=== PATIENT | female | born 1940 | race Caucasian/White ===

== ENCOUNTER 2017-09-21 05:45 | Inpatient (IN) | payer OTHER ==
[~2017-09-21] VITALS: Ht 157.5 cm; Wt 83.2 kg
[2017-09-21 06:48] LABS: BASOPHIL % 0.4 % (0-2); PLATELET COUNT 204 x10^3mcL (130-400)
[2017-09-21 07:15] LABS: CALCIUM 8.7 mg/dL (8.5-10.1); CARBON DIOXIDE 20.4 mmol/L (21-32); CHLORIDE SERUM 107 mmol/L (98-107); CREATININE SERUM 1.1 mg/dL (0.6-1.0); GLUCOSE SERUM 109 mg/dL (74-106); POTASSIUM SERUM 4.4 mmol/L (3.5-5.1); SODIUM SERUM 139 mmol/L (136-145)
[2017-09-21 07:16] LABS: FREE T4 0.94 ng/dL (0.76-1.46); FREE THYROXINE INDEX 1.8 ug/dL (1.4-4.5); T4(THYROXINE) 5.7 ug/dL (4.7-13.3)
[2017-09-21 07:20] LABS: ALBUMIN 3.6 g/dL (3.4-5.0); ALKALINE PHOSPHATASE 113 U/L (46-116); ALT/SGPT 32 U/L (14-59); AST/SGOT 22 U/L (15-37); BILIRUBIN TOTAL 0.2 mg/dL (0.20-1.00); CHOLESTEROL 151 mg/dL (<200); HDL CHOLESTEROL 51 mg/dL (40-60); LIPASE 112 IU/L (73-393); TOTAL PROTEIN, SERUM 7.3 g/dL (6.4-8.2); TRIGLYCERIDES 176 mg/dL (<150)
[2017-09-21 07:46] LABS: RED CELL DISTRIBUTION WIDTH 15.1 % (11.5-14.5)
[2017-09-21 08:49] LABS: microscopic required? NO
[2017-09-21] MEDS ORDERED: LISINOPRIL-HYDR1 TA3 PO (09:04)
[2017-09-21] MEDS ORDERED: MYS50 PO (09:06)
[2017-09-21] MEDS ORDERED: METOPROLOL SUC100 M2 PO (09:08)
[2017-09-21] MEDS ORDERED: SIMVASTATIN10 M1 PO (09:08)
[2017-09-21] MEDS ORDERED: CLOPIDOGREL75 M1 PO (09:09)
[2017-09-21] MEDS ORDERED: ASPIR 8181 MG PO (09:09)
[2017-09-21] MEDS ORDERED: TEMAZEPAM15 MG PO (09:10)
[2017-09-21] MEDS ORDERED: ADV100/50 INH (09:10)
[2017-09-21] MEDS ORDERED: ESCITALOPRAM10 M1 PO (09:11)
[2017-09-21] MEDS ORDERED: LOPERAMIDE HCL2 MG PO (09:11)
[2017-09-21 09:17] LABS: urine erythrocyte NEGATIVE (NEGATIVE)
[2017-09-21 09:43] LABS: MAGNESIUM 1.9 mg/dL (1.8-2.4); PHOSPHOROUS 3.7 mg/dL (2.5-4.9)
[2017-09-21 09:59] LABS: AMPHETAMINE QUAL UR NONE DETECTED (NEG <=1000)
[2017-09-21 11:08] VITALS: BP 120/70
[2017-09-21 14:12] VITALS: BP 120/70
[2017-09-21 16:21] VITALS: BP 148/51
[2017-09-21 20:47] VITALS: BP 130/55
[2017-09-22 06:12] VITALS: BP 132/48
[2017-09-22 06:19] LABS: BASOPHIL % 0.5 % (0-2); PLATELET COUNT 180 x10^3mcL (130-400)
[2017-09-22 06:21] LABS: CALCIUM 8.1 mg/dL (8.5-10.1); CARBON DIOXIDE 21.1 mmol/L (21-32); CHLORIDE SERUM 108 mmol/L (98-107); CREATININE SERUM 0.8 mg/dL (0.6-1.0); GLUCOSE SERUM 92 mg/dL (74-106); POTASSIUM SERUM 4.2 mmol/L (3.5-5.1); SODIUM SERUM 140 mmol/L (136-145)
[2017-09-22 07:29] LABS: RED CELL DISTRIBUTION WIDTH 15.1 % (11.5-14.5)
[2017-09-22 09:09] VITALS: BP 141/52
[2017-09-22 09:23] LABS: T3 TOTAL 0.99 ng/mL
[2017-09-22 12:37] VITALS: BP 150/53
[2017-09-22 12:47] LABS: RED BLOOD CELLS 3.18 M/mm3 (4.10-5.10)
[2017-09-22 12:48] LABS: IRON 65 ug/dL (50-170)
[2017-09-22 13:04] LABS: TOTAL IRON BINDING CAPACITY 373 ug/dL (250-450)
[2017-09-22 17:32] VITALS: BP 149/66
[2017-09-22 21:21] VITALS: BP 149/65
[2017-09-23 06:02] VITALS: BP 151/59
[2017-09-23 08:20] VITALS: BP 152/59
[2017-09-23 17:35] VITALS: BP 164/72
[2017-09-23 20:01] LABS: BASOPHIL % 0.8 % (0-2); PLATELET COUNT 185 x10^3mcL (130-400); RED CELL DISTRIBUTION WIDTH 14.3 % (11.5-14.5)
[2017-09-23 20:48] VITALS: BP 127/51
[2017-09-24 05:57] VITALS: BP 106/44
[2017-09-24 06:36] LABS: BASOPHIL % 0.3 % (0-2); PLATELET COUNT 182 x10^3mcL (130-400); RED CELL DISTRIBUTION WIDTH 14.5 % (11.5-14.5)
[2017-09-24 06:58] LABS: CALCIUM 8.2 mg/dL (8.5-10.1); CARBON DIOXIDE 24.2 mmol/L (21-32); CHLORIDE SERUM 104 mmol/L (98-107); CREATININE SERUM 1.3 mg/dL (0.6-1.0); GLUCOSE SERUM 96 mg/dL (74-106); MAGNESIUM 1.7 mg/dL (1.8-2.4); PHOSPHOROUS 3.5 mg/dL (2.5-4.9); POTASSIUM SERUM 4.1 mmol/L (3.5-5.1); SODIUM SERUM 137 mmol/L (136-145)
[2017-09-24 08:36] VITALS: BP 109/52
[2017-09-24 09:07] VITALS: BP 109/52
[2017-09-24 12:53] VITALS: BP 116/51
[2017-09-24 17:45] VITALS: BP 129/50
[2017-09-24 21:51] VITALS: BP 132/46
[2017-09-24 22:42] LABS: UA SPECIFIC GRAVITY 1.015 (1.005-1.035); microscopic required? YES; urine erythrocyte 3+ (NEGATIVE)
[2017-09-25 06:16] VITALS: BP 145/72
[2017-09-25 06:58] LABS: BASOPHIL % 0.4 % (0-2); PLATELET COUNT 187 x10^3mcL (130-400)
[2017-09-25 06:59] LABS: RED CELL DISTRIBUTION WIDTH 14.8 % (11.5-14.5)
[2017-09-25 07:08] LABS: CALCIUM 8.1 mg/dL (8.5-10.1); CARBON DIOXIDE 21.1 mmol/L (21-32); CHLORIDE SERUM 107 mmol/L (98-107); CREATININE SERUM 1.1 mg/dL (0.6-1.0); GLUCOSE SERUM 104 mg/dL (74-106); POTASSIUM SERUM 3.9 mmol/L (3.5-5.1); SODIUM SERUM 140 mmol/L (136-145)
[2017-09-25 09:16] VITALS: BP 118/50
[2017-09-25 12:18] VITALS: BP 145/45
[2017-09-25 16:40] VITALS: BP 130/56
[2017-09-25 20:58] VITALS: BP 121/49
[2017-09-26 05:14] VITALS: BP 125/44
[2017-09-26 06:30] LABS: BASOPHIL % 0.4 % (0-2); PLATELET COUNT 177 x10^3mcL (130-400)
[2017-09-26 06:37] LABS: CALCIUM 8.1 mg/dL (8.5-10.1); CARBON DIOXIDE 19.2 mmol/L (21-32); CHLORIDE SERUM 106 mmol/L (98-107); CREATININE SERUM 1.2 mg/dL (0.6-1.0); GLUCOSE SERUM 121 mg/dL (74-106); POTASSIUM SERUM 3.8 mmol/L (3.5-5.1); SODIUM SERUM 137 mmol/L (136-145)
[2017-09-26 07:00] LABS: RED CELL DISTRIBUTION WIDTH 15.1 % (11.5-14.5)
[2017-09-26 10:02] VITALS: BP 83/31
[2017-09-26 14:03] VITALS: BP 116/89
[2017-09-26 18:11] VITALS: BP 103/44
[2017-09-26 20:42] VITALS: BP 103/54
[2017-09-27 04:42] VITALS: BP 93/53
[2017-09-27 08:00] VITALS: BP 109/49
[2017-09-27 09:50] LABS: PLATELET COUNT 207 x10^3mcL (130-400)
[2017-09-27 09:53] LABS: CALCIUM 8.7 mg/dL (8.5-10.1); CARBON DIOXIDE 11.1 mmol/L (21-32); CHLORIDE SERUM 105 mmol/L (98-107); CREATININE SERUM 2.8 mg/dL (0.6-1.0); GLUCOSE SERUM 142 mg/dL (74-106); POTASSIUM SERUM 4.4 mmol/L (3.5-5.1); RED CELL DISTRIBUTION WIDTH 15.4 % (11.5-14.5); SODIUM SERUM 134 mmol/L (136-145)
[2017-09-27 11:14] LABS: BAND NEUTROPHIL 8 % (0-10); BASOPHIL 0 % (0-2); MONOCYTE 9 % (0-7); SEGMENTED NEUTROPHILS 76 % (37-75)
[2017-09-27 11:15] LABS: PLATELET MORPHOLOGY PLATELETS NORMAL
[2017-09-27 13:21] VITALS: BP 106/83
[2017-09-27 14:23] LABS: PLATELET COUNT 197 x10^3mcL (130-400)
[2017-09-27 14:25] LABS: RED CELL DISTRIBUTION WIDTH 15.4 % (11.5-14.5)
[2017-09-27 14:55] LABS: MONOCYTE 5 % (0-7); SEGMENTED NEUTROPHILS 93 % (37-75)
[2017-09-27 14:56] LABS: BAND NEUTROPHIL 2 % (0-10); BASOPHIL 0 % (0-2); rbc morphology (normal/abnorm) ABNORMAL (NORMAL)
[2017-09-27 14:57] LABS: PLATELET MORPHOLOGY PLATELETS NORMAL
[2017-09-27 16:00] VITALS: BP 84/67
[2017-09-27 19:49] VITALS: BP 117/52
[2017-09-27 20:27] LABS: CALCIUM 8.5 mg/dL (8.5-10.1); CARBON DIOXIDE 13.4 mmol/L (21-32); CHLORIDE SERUM 106 mmol/L (98-107); CREATININE SERUM 2.7 mg/dL (0.6-1.0); GLUCOSE SERUM 140 mg/dL (74-106); POTASSIUM SERUM 4.2 mmol/L (3.5-5.1); SODIUM SERUM 135 mmol/L (136-145)
[2017-09-27 23:30] VITALS: BP 144/68
[2017-09-28 03:29] VITALS: BP 103/47
[2017-09-28 05:30] LABS: BASOPHIL % 0.1 % (0-2); PLATELET COUNT 200 x10^3mcL (130-400)
[2017-09-28 05:34] LABS: RED CELL DISTRIBUTION WIDTH 15.5 % (11.5-14.5)
[2017-09-28 05:44] LABS: CALCIUM 8.6 mg/dL (8.5-10.1); CARBON DIOXIDE 13.8 mmol/L (21-32); CHLORIDE SERUM 109 mmol/L (98-107); CREATININE SERUM 2.6 mg/dL (0.6-1.0); GLUCOSE SERUM 115 mg/dL (74-106); MAGNESIUM 2.3 mg/dL (1.8-2.4); PHOSPHOROUS 5.7 mg/dL (2.5-4.9); POTASSIUM SERUM 4.3 mmol/L (3.5-5.1); SODIUM SERUM 138 mmol/L (136-145)
[2017-09-28 07:45] VITALS: BP 67/45; BP 84/45
[2017-09-28 11:50] VITALS: BP 128/59
[2017-09-28 15:10] VITALS: BP 119/85
[2017-09-28 17:44] LABS: CALCIUM 8.1 mg/dL (8.5-10.1); CARBON DIOXIDE 15.4 mmol/L (21-32); CHLORIDE SERUM 110 mmol/L (98-107); CREATININE SERUM 2.1 mg/dL (0.6-1.0); GLUCOSE SERUM 155 mg/dL (74-106); PLATELET COUNT 220 x10^3mcL (130-400); POTASSIUM SERUM 3.5 mmol/L (3.5-5.1); SODIUM SERUM 138 mmol/L (136-145)
[2017-09-28 17:50] LABS: BASOPHIL % 0.2 % (0-2)
[2017-09-28 17:56] LABS: RED CELL DISTRIBUTION WIDTH 15.4 % (11.5-14.5)
[2017-09-28 20:03] VITALS: BP 84/42
[2017-09-28 22:07] LABS: CALCIUM 7.8 mg/dL (8.5-10.1); CARBON DIOXIDE 16.9 mmol/L (21-32); CHLORIDE SERUM 110 mmol/L (98-107); GLUCOSE SERUM 136 mg/dL (74-106); POTASSIUM SERUM 3.3 mmol/L (3.5-5.1); SODIUM SERUM 140 mmol/L (136-145)
[2017-09-28 22:40] LABS: microscopic required? YES; urine erythrocyte 3+ (NEGATIVE)
[2017-09-28 23:38] VITALS: BP 120/49
[2017-09-29] VITALS (14 sets, daily range): BP systolic 107–167; BP diastolic 36–71
[2017-09-29 06:03] LABS: CALCIUM 8.3 mg/dL (8.5-10.1); CARBON DIOXIDE 17.7 mmol/L (21-32); CHLORIDE SERUM 113 mmol/L (98-107); CREATININE SERUM 1.7 mg/dL (0.6-1.0); GLUCOSE SERUM 112 mg/dL (74-106); POTASSIUM SERUM 3.2 mmol/L (3.5-5.1); SODIUM SERUM 144 mmol/L (136-145)
[2017-09-29 13:14] LABS: BASOPHIL % 0.3 % (0-2); PLATELET COUNT 253 x10^3mcL (130-400)
[2017-09-29 13:18] LABS: RED CELL DISTRIBUTION WIDTH 17.7 % (11.5-14.5)
[2017-09-29 13:23] LABS: CALCIUM 7.7 mg/dL (8.5-10.1); CARBON DIOXIDE 18.2 mmol/L (21-32); CHLORIDE SERUM 111 mmol/L (98-107); CREATININE SERUM 1.4 mg/dL (0.6-1.0); GLUCOSE SERUM 165 mg/dL (74-106); POTASSIUM SERUM 3.3 mmol/L (3.5-5.1); SODIUM SERUM 141 mmol/L (136-145)
[2017-09-29 16:39] LABS: BASOPHIL % 0.6 % (0-2); PLATELET COUNT 271 x10^3mcL (130-400)
[2017-09-29 16:45] LABS: RED CELL DISTRIBUTION WIDTH 17.5 % (11.5-14.5)
[2017-09-30] VITALS (18 sets, daily range): BP systolic 144–177; BP diastolic 52–78
[2017-09-30 01:37] LABS: CALCIUM 8.1 mg/dL (8.5-10.1); CARBON DIOXIDE 22.3 mmol/L (21-32); CHLORIDE SERUM 111 mmol/L (98-107); CREATININE SERUM 1.1 mg/dL (0.6-1.0); GLUCOSE SERUM 154 mg/dL (74-106); MAGNESIUM 1.5 mg/dL (1.8-2.4); POTASSIUM SERUM 3.3 mmol/L (3.5-5.1); SODIUM SERUM 144 mmol/L (136-145)
[2017-09-30 05:31] LABS: BASOPHIL % 0.9 % (0-2); PLATELET COUNT 263 x10^3mcL (130-400)
[2017-09-30 05:42] LABS: CALCIUM 8.2 mg/dL (8.5-10.1); CARBON DIOXIDE 19.3 mmol/L (21-32); CHLORIDE SERUM 110 mmol/L (98-107); GLUCOSE SERUM 185 mg/dL (74-106); MAGNESIUM 1.5 mg/dL (1.8-2.4); PHOSPHOROUS 1.6 mg/dL (2.5-4.9); POTASSIUM SERUM 3.4 mmol/L (3.5-5.1); SODIUM SERUM 143 mmol/L (136-145)
[2017-09-30 14:29] LABS: CALCIUM 8.1 mg/dL (8.5-10.1); CARBON DIOXIDE 23.3 mmol/L (21-32); CHLORIDE SERUM 107 mmol/L (98-107); CREATININE SERUM 1.1 mg/dL (0.6-1.0); GLUCOSE SERUM 216 mg/dL (74-106); SODIUM SERUM 138 mmol/L (136-145)
[2017-09-30 22:21] LABS: CALCIUM 7.7 mg/dL (8.5-10.1); CARBON DIOXIDE 23.2 mmol/L (21-32); CHLORIDE SERUM 109 mmol/L (98-107); CREATININE SERUM 0.9 mg/dL (0.6-1.0); GLUCOSE SERUM 168 mg/dL (74-106); POTASSIUM SERUM 3.3 mmol/L (3.5-5.1); SODIUM SERUM 140 mmol/L (136-145)
[2017-10-01] VITALS (13 sets, daily range): BP systolic 138–164; BP diastolic 58–81
[2017-10-01 05:50] LABS: CALCIUM 8.1 mg/dL (8.5-10.1); CARBON DIOXIDE 25.7 mmol/L (21-32); CHLORIDE SERUM 108 mmol/L (98-107); GLUCOSE SERUM 139 mg/dL (74-106); POTASSIUM SERUM 3.1 mmol/L (3.5-5.1); SODIUM SERUM 146 mmol/L (136-145)
[2017-10-02 03:28] VITALS: BP 144/66
[2017-10-02 06:08] LABS: BASOPHIL % 0.3 % (0-2); PLATELET COUNT 301 x10^3mcL (130-400); RED CELL DISTRIBUTION WIDTH 16.9 % (11.5-14.5)
[2017-10-02 06:10] LABS: CALCIUM 7.4 mg/dL (8.5-10.1); CARBON DIOXIDE 28.9 mmol/L (21-32); CHLORIDE SERUM 108 mmol/L (98-107); CREATININE SERUM 0.9 mg/dL (0.6-1.0); GLUCOSE SERUM 156 mg/dL (74-106); MAGNESIUM 1.8 mg/dL (1.8-2.4); SODIUM SERUM 145 mmol/L (136-145)
[2017-10-02 06:12] LABS: POTASSIUM SERUM 2.8 mmol/L (3.5-5.1)
[2017-10-02 07:45] VITALS: BP 151/56
[2017-10-02 11:50] VITALS: BP 142/64
[2017-10-02 16:20] VITALS: BP 159/58
[2017-10-02 21:17] VITALS: BP 154/61
[2017-10-03 05:53] VITALS: BP 161/49
[2017-10-03 06:23] LABS: CALCIUM 7.7 mg/dL (8.5-10.1); CHLORIDE SERUM 110 mmol/L (98-107); CREATININE SERUM 0.7 mg/dL (0.6-1.0); GLUCOSE SERUM 134 mg/dL (74-106); MAGNESIUM 1.8 mg/dL (1.8-2.4); PHOSPHOROUS 2.2 mg/dL (2.5-4.9); POTASSIUM SERUM 4.4 mmol/L (3.5-5.1); SODIUM SERUM 141 mmol/L (136-145)
[2017-10-03 06:35] LABS: BASOPHIL % 0.1 % (0-2); PLATELET COUNT 355 x10^3mcL (130-400)
[2017-10-03 07:08] LABS: RED CELL DISTRIBUTION WIDTH 16.7 % (11.5-14.5)
[2017-10-03 09:20] VITALS: BP 151/79
[2017-10-03 09:54] VITALS: Ht 157.5 cm; Wt 83.2 kg
[2017-10-03 12:50] VITALS: BP 169/68
[2017-10-03 17:57] VITALS: BP 169/49
[2017-10-03 21:01] VITALS: BP 145/50
[2017-10-04] VITALS (7 sets, daily range): BP systolic 120–154; BP diastolic 49–63
[2017-10-04 06:33] LABS: BASOPHIL % 0.2 % (0-2); PLATELET COUNT 369 x10^3mcL (130-400)
[2017-10-04 07:20] LABS: CALCIUM 7.7 mg/dL (8.5-10.1); CARBON DIOXIDE 26.5 mmol/L (21-32); CHLORIDE SERUM 109 mmol/L (98-107); CREATININE SERUM 0.6 mg/dL (0.6-1.0); GLUCOSE SERUM 101 mg/dL (74-106); MAGNESIUM 1.8 mg/dL (1.8-2.4); PHOSPHOROUS 2.5 mg/dL (2.5-4.9); POTASSIUM SERUM 4.4 mmol/L (3.5-5.1); SODIUM SERUM 142 mmol/L (136-145)
[2017-10-04 07:45] LABS: RED CELL DISTRIBUTION WIDTH 16.7 % (11.5-14.5)
[2017-10-05 05:51] VITALS: BP 167/66
[2017-10-05 06:49] LABS: BASOPHIL % 0.4 % (0-2)
[2017-10-05 06:55] LABS: CARBON DIOXIDE 24.9 mmol/L (21-32); CHLORIDE SERUM 107 mmol/L (98-107); CREATININE SERUM 0.7 mg/dL (0.6-1.0); GLUCOSE SERUM 97 mg/dL (74-106); POTASSIUM SERUM 4.3 mmol/L (3.5-5.1); SODIUM SERUM 139 mmol/L (136-145)
[2017-10-05 07:14] LABS: MAGNESIUM 1.7 mg/dL (1.8-2.4); PHOSPHOROUS 2.7 mg/dL (2.5-4.9)
[2017-10-05 07:25] LABS: PLATELET COUNT 404 x10^3mcL (130-400); RED CELL DISTRIBUTION WIDTH 17.3 % (11.5-14.5)
[2017-10-05 11:05] VITALS: BP 144/48
[2017-10-05] MEDS ORDERED: HEP5I SC (11:16)
[2017-10-05] MEDS ORDERED: NEU300 PO (11:17)
[2017-10-05] MEDS ORDERED: LOP50 PO (11:17)
[2017-10-05] MEDS ORDERED: ALD50 NG (11:17)
[2017-10-05] MEDS ORDERED: NIZC TOP (11:18)
[2017-10-05 12:32] VITALS: BP 144/48
[2017-10-05 14:24] VITALS: BP 153/56
== END 2017-10-05 15:31 | DRG 469 ==
LOC: ED 05:45 → MU 08:50 → DU 08:50 → MU 09-23 06:41 → IC 09-27 15:57 → DU 09-27 17:28 → IC 09-27 17:29 → DU 09-27 17:36 → IC 09-27 17:36 → DU 10-02 16:15
PROVIDERS: Family Medicine; Family Medicine Sports Medicine; Internal Medicine Nephrology; Neuromusculoskeletal Medicine, Sports Medicine; Specialist; Student in an Organized Health Care Education/Training Program
PROC: 0SRR0JZ Replacement of Right Hip Joint, Femoral Surface with Synthetic Substitute, Open Approach (ICD-10-PCS; principal; 2017-09-25 13:00)
PROC: 05HM33Z Insertion of Infusion Device into Right Internal Jugular Vein, Percutaneous Approach (ICD-10-PCS; 2017-09-27)
PROC: B543ZZA Ultrasonography of Right Jugular Veins, Guidance (ICD-10-PCS; 2017-09-27)
PROC: 0BH17EZ Insertion of Endotracheal Airway into Trachea, Via Natural or Artificial Opening (ICD-10-PCS; 2017-09-29)
PROC: 5A1945Z Respiratory Ventilation, 24-96 Consecutive Hours (ICD-10-PCS; 2017-09-29)
PROC: 30233N1 Transfusion of Nonautologous Red Blood Cells into Peripheral Vein, Percutaneous Approach (ICD-10-PCS; 2017-09-29)
PROC: 30233N1 Transfusion of Nonautologous Red Blood Cells into Peripheral Vein, Percutaneous Approach (ICD-10-PCS; 2017-09-29)
DX: M84.451A Pathological fracture, right femur, initial encounter for fracture (principal); N17.0 Acute kidney failure with tubular necrosis; J96.00 Acute respiratory failure, unspecified whether with hypoxia or hypercapnia; G93.41 Metabolic encephalopathy; E87.2 Acidosis; J44.1 Chronic obstructive pulmonary disease with (acute) exacerbation; I42.0 Dilated cardiomyopathy; N39.0 Urinary tract infection, site not specified; I10 Essential (primary) hypertension; I27.20 Pulmonary hypertension, unspecified; E86.0 Dehydration; E83.39 Other disorders of phosphorus metabolism; E87.6 Hypokalemia; D50.9 Iron deficiency anemia, unspecified; E11.9 Type 2 diabetes mellitus without complications; G25.0 Essential tremor; M51.27 Other intervertebral disc displacement, lumbosacral region; M47.897 Other spondylosis, lumbosacral region; F32.9 Major depressive disorder, single episode, unspecified; F41.9 Anxiety disorder, unspecified; E78.5 Hyperlipidemia, unspecified; Z68.28 Body mass index [BMI] 28.0-28.9, adult; Z86.73 Personal history of transient ischemic attack (TIA), and cerebral infarction without residual deficits; Z87.310 Personal history of (healed) osteoporosis fracture; Z90.49 Acquired absence of other specified parts of digestive tract; Z90.710 Acquired absence of both cervix and uterus; Z79.82 Long term (current) use of aspirin; Z79.02 Long term (current) use of antithrombotics/antiplatelets
CPT/HCPCS: 31500; 36556; 36600; 83880; 84439; 87046; 87046-59; 92610-GN; 94150; 97110-GP; 97116-GP; 97164; 97530-GP; A4628; C1776; J0690; J0696; J1642; J1644; J1885; J1940; J2250; J2270; J2310; J2370; J2405; J2543; J2765; J2800; J3010; J3475; J3480; J3490; J7030; J7040; J7050; J7620; J7626; P9016; Q0092; Q0162